=== PATIENT | female | born 1990 | race Caucasian/White ===

== ENCOUNTER 2023-10-17 14:36 | Emergency (ER) | payer OTHER, SELFPAY ==
--- NOTE | ~2023-10-17 | XR_ITS ---
EXAMINATION: XR chest 2V DATE: 10/17/2023 15:19 INDICATION: Chest pain TECHNIQUE: Frontal and lateral views of the chest are obtained COMPARISON: None available FINDINGS: The lungs are free of acute opacities. No pleural effusion or pneumothorax. The cardiomedia stinal silhouette is normal. There is mild thoracic spondylosis. IMPRESSION: 1. No acute cardiopulmonary abnormality. Reviewed, dictated and finalized at location L. [facility]
--- NOTE | 2023-10-17 14:37 | ECG_ITS ---
Measurements Intervals [place] Rate: 105 P: 46 DE: 148 QRS: 53 QRSD: 67 T: 3 QT: 311 QTc: 411 Interpretive Statements SINUS TACHYCARDIA NONSPECIFIC T-WAVE ABNORMALITY ABNORMAL ECG NO PREVIOUS ECG AVAILABLE FOR COMPARISON Electronically Signed On 10-18-2023 10:32:41 ROOM ATTENDANT by Renny Borges M.D.
[2023-10-17 14:40] VITALS: BP 160/114; PULSE 103; RESP 16; TEMP 36.4; O2SAT 100
[2023-10-17 15:09] LABS: Basophils Absolute Auto 0.1 K/mm3 (0.0-0.1); Basophils Percent Auto 0.8 % (0.2-1.2); Eosinophils Absolute Auto 0.1 K/mm3 (0-0.3); Eosinophils Percent Auto 0.7 % (0-4.4); Hematocrit 44.1 % (37.0-47.0); Hemoglobin 14.9 g/dL (12.0-15.0); Immature Granulocyte Absolute 0.03 K/mm3 (0.00-0.031); Immature Granulocyte Percent A 0.3 % (0-0.5); Lymphocytes Absolute Auto 2.28 K/mm3 (0.9-3.2); Lymphocytes Percent Auto 26.3 % (18.3-44.2); Mean Corpuscular HGB Conc 33.8 g/dl (32-36); Mean Corpuscular Hemoglobin 30.9 pg (26-34); Mean Corpuscular Volume 91.5 fl (80-100); Mean Platelet Volume 10.6 fl (7.4-10.4); Monocytes Absolute Auto 0.8 K/mm3 (0.1-0.6); Monocytes Percent Auto 9.1 % (2.6-8.5); Neutrophils Absolute Auto 5.4 K/mm3 (1.3-6.7); Neutrophils Percent Auto 62.8 % (45.5-73.1); Platelet Count Result 314 k/mm3 (150-375); Red Blood Count 4.82 M/mm3 (4.2-5.4); Red Cell Distribution Width 12.3 % (11.5-14.5); White Blood Count 8.7 K/mm3 (4.5-10.0)
[2023-10-17 15:15] LABS: Alanine Aminotransferase 16 U/L (6-35); Albumin Level 5.1 g/dL (3.5-5.1); Alkaline Phosphatase 87 U/L (38-126); Anion Gap 10 mmol/L (8-16); Aspartate Amino Transferase 20 U/L (14-36); Bilirubin,Total 0.7 mg/dL (0.2-1.3); Blood Urea Nitrogen 7 mg/dL (7-17); Calcium 9.7 mg/dL (8.4-10.2); Carbon Dioxide 24 mmol/L (22-30); Chloride 105 mmol/L (98-107); Estimated CRCL calculation 86 ml/min; Estimated Glomerular Filt Rate > 60; Glucose 94 mg/dL (65-110); Lipase 144 U/L (23-300); Potassium 4.2 mmol/L (3.4-5.0); Sodium 139 mmol/L (137-145)
[2023-10-17 15:23] LABS: INR 0.9; Prothrombin Time 12.7 Seconds (11.1-14.7)
[2023-10-17 15:26] LABS: Troponin I < 0.012 ng/mL (0.000-0.034)
--- NOTE | 2023-10-17 16:25 | ED.CHESTPAIN ---
HPI - Chest Pain General Chief Complaint: Chest Pain <Virgen Conroy PA-C - Last Filed: 10/18/23 09:26> Stated Complaint: chest pain, elevated HR <MICHAEL Mckeon Last Filed: 10/18/23 09:26> Time Seen by Provider: 10/17/23 16:58 <MICHAEL Mckeon Last Filed: 10/18/23 09:26> Source: patient <MICHAEL Mckeon Last Filed: 10/18/23 09:26> Mode of arrival: ambulatory <MICHAEL Mckeon Last Filed: 10/18/23 09:26> Limitations: no limitations <MICHAEL Mckeon Last Filed: 10/18/23 09:26> History of Present Illness HPI narrative: This is a 33 year old female that presents to the ER for chest pain and palpitations. Reports left sided chest pain that is sharp in nature. Also reports palpitations that have been ongoing for several months. She is scheduled to follow up with [facility] for her palpitations. Hydroxyzine helped her symptoms. Reports she saw her PCP today who sent her to the ER for further evaluation. Denies shortness of breath or lower extremity edema. <Virgen Conroy PA-C - Last Filed: 10/18/23 09:26> This is a 33 year old female that presents to the ER for chest pain and palpitations. Reports left sided chest pain that is sharp in nature. Also reports palpitations that have been ongoing for 8 months. She is scheduled to follow up with a cigarette carton sealer at [facility] for her palpitations. 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 Patient is unsure of what the Holter monitor showed. Hydroxyzine helped her symptoms. Reports she saw her PCP today who sent her to the ER for further evaluation. Patient denies any shortness of breath, nausea, vomiting, abdominal pain, dysuria, hematuria, constipation, diarrhea, melena, hematochezia, fevers or chills. Patient also denies any headaches, dizziness, lightheadedness, blurry visions, focal weakness, numbness and or tingling. There are no other modifying, alleviating, or precipitating factors at this time. <Trista Batista MD - Last Filed: 10/17/23 18:56> Related Data Allergies/Adverse Reactions: Allergies Allergy/AdvReac Type Severity Reaction Status Date / Time No Known Allergies Allergy Verified 10/17/23 14:42 <Virgen Conroy PA-C - Last Filed: 10/18/23 09:26> Review of Systems Review of Systems: CONSTITUTIONAL: Denies fever CARDIOVASCULAR: Reports chest pain, palpitations. Denies edema. RESPIRATORY: Denies dyspnea. <Virgen Conroy PA-C - Last Filed: 10/18/23 09:26> All systems are reviewed and are negative unless stated otherwise in the HPI. <Trista Batista MD - Last Filed: 10/17/23 18:56> All systems reviewed & are unremarkable except as noted in HPI and below <Virgen Conroy PA-C - Last Filed: 10/18/23 09:26> PMFSH Past Medical History Medical History: Medical History No active medical problems <Virgen Conroy PA-C - Last Filed: 10/18/23 09:26> Social History Social History: Social History Smoking status: Current every day smoker Tobacco type: e-cigarettes/vaping <Virgen Conroy PA-C - Last Filed: 10/18/23 09:26> Exam Narrative: GENERAL: Well-appearing, well-nourished, and in no acute distress. HEAD: Normocephalic, atraumatic. EYES: EOMI. CHEST: Clear to auscultation. No respiratory distress. No wheezes rales or rhonchi HEART: Regular rate and rhythm. No murmur heard. Normal peripheral pulses. EXTREMITIES: Normal range of motion. No edema. SKIN: Warm, dry, no rash. NEURO: No focal deficits. Alert and oriented x3. PSYCH: Normal mood and affect <Virgen Conroy PA-C - Last Filed: 10/18/23 09:26> GENERAL: Well-appearing, well-nourished, and in no acute distress, anxious.
[2023-10-17] MEDS: KETOROLAC 15 MG/ML VIAL (*BKC) IV PUSH (16:47)
[2023-10-17 16:55] LABS: D Dimer < 0.27 ug/mL (<0.48)
--- NOTE | 2023-10-17 17:03 | ED.GENADULT ---
HPI - General Adult General Chief complaint: Chest Pain Stated complaint: chest pain, elevated HR Time Seen by Provider: 10/17/23 16:58 Source: patient Mode of arrival: ambulatory Limitations: no limitations History of Present Illness HPI narrative: Patient denies any shortness of breath, nausea, vomiting, abdominal pain, dysuria, hematuria, constipation, diarrhea, melena, hematochezia, fevers or chills. Patient also denies any headaches, dizziness, lightheadedness, blurry visions, focal weakness, numbness and or tingling. There are no other modifying, alleviating, or precipitating factors at this time. Related Data Allergies Allergy/AdvReac Type Severity Reaction Status Date / Time No Known Allergies Allergy Verified 10/17/23 14:42 Review of Systems Review of Systems: All systems are reviewed and are negative unless stated otherwise in the HPI. [facility] Past Medical History Medical History No active medical problems Social History Social History Smoking status: Current every day smoker Tobacco type: e-cigarettes/vaping Exam Narrative: General: Alert, awake, afebrile, in no acute distress. HEENT: PERRL, no rhinorrhea, no post nasal drip, oropharynx clear. Neck: Trachea midline, no JVD, no lymphadenopathy. Cardiovascular: Tachycardic with regular rhythm, no murmurs, rubs or gallops, no peripheral edema. Respiratory: Clear to auscultation bilaterally, no tachypnea, no wheezing, no rhonchi, no rubs, no respiratory distress. Abdomen: Soft, nontender, nondistended, no rebound, no guarding, no peritoneal signs. Musculoskeletal: No joint swelling or deformity, normal muscle tone. Skin: No rashes or petechia, no signs of infection. Psychiatric: Alert and oriented, normal behavior and judgment for situation. Neurological: Alert and oriented to person, place, and time. Follows all commands. No focal deficits, speech is clear and fluent. Course Vital Signs Vital signs: Vital Signs Temperature 97.6 F 10/17/23 14:40 Pulse Rate 103 H 10/17/23 14:40 Respiratory Rate 16 10/17/23 14:40 Blood Pressure 160/114 H 10/17/23 14:40 Pulse Oximetry 100 10/17/23 14:40 Oxygen Delivery Room Air 10/17/23 14:40 Temperature 97.6 F 10/17/23 14:40 Pulse Rate 103 H 10/17/23 14:40 Respiratory Rate 16 10/17/23 14:40 Blood Pressure 160/114 H 10/17/23 14:40 Pulse Oximetry 100 10/17/23 14:40 Oxygen Delivery Room Air 10/17/23 14:40 Medical Decision Making MDM Narrative Medical decision making narrative: The patient was evaluated by myself in the emergency department. History is obtained from patient who is an independent historian and physical exam was performed. External medical records were reviewed at this time. IV was established and pertinent tests were ordered. Patient was administered [intervention]. EKG was obtained which revealed [ ]. No ST changes, T wave inversions or evidence of acute ischemia. EKG was independently interpreted by me and is currently pending official cardiology read. Laboratory results obtained revealing [laboratory data]. Imaging studies obtained included [study] which was independently interpreted by me revealing [finding], which is pending final radiology interpretation. Differential diagnosis considerations include [differential] but is less likely due to [reasons]. Comorbidities impacting this visit include [comorbidities]. I have evaluated and discussed social determinants of health with the patient that could potentially impact subsequent diagnosis and treatment plans. On repeat assessment of the patient, reevaluation revealed that the patient is doing well and is in no acute distress. Patient symptoms have improved since [he/she] arrived to our emergency department. Repeat vital signs were all reviewed and noted to be stable. Dif
[2023-10-17 17:53] LABS: Influenza A QL RT-PCR Negative (Negative); Influenza B QL RT-PCR Negative (Negative); SARS-CoV-2 RNA PCR Negative (Negative)
[2023-10-17] MEDS: SODIUM CHLORIDE 0.9% IV 1,000 ML 999 ML IV CONT (17:56)
[2023-10-17 18:15] LABS: Magnesium 2.2 mg/dL (1.6-2.3)
[2023-10-17 18:21] LABS: SPREG INTERNAL CONTROL Positive; Serum Qual hCG Negative
[2023-10-17 18:27] LABS: Troponin I < 0.012 ng/mL (0.000-0.034)
[2023-10-17 18:46] LABS: Thyroid Stimulating Hormone 0.962 uIU/mL (0.465-4.680)
[2023-10-17 18:49] VITALS: BP 121/89; PULSE 90; RESP 16; O2SAT 99
== END 2023-10-17 19:12 | disposition home or self-care (01) ==
PROVIDERS: Emergency Medicine; Emergency Provider Emergency Medicine; PCP Physician Assistant
DX: R07.9 Chest pain, unspecified (principal); R00.2 Palpitations; Z20.822 Contact with and (suspected) exposure to COVID-19; F17.290 Nicotine dependence, other tobacco product, uncomplicated
CPT/HCPCS: 36415; 71046; 80053; 83690; 83735; 84443; 84484; 84703; 85025; 85380; 85610; 85730; 87636; 93005; 96361; 96374; 99284; J1885; J7030